=== PATIENT | male | born 1995 | race African-American/Black ===

== ENCOUNTER 2017-09-17 16:10 | Emergency (ER) | payer SELFPAY ==
[~2017-09-17] VITALS: Ht 185.4 cm; Wt 86.0 kg
[~2017-09-17 16:10] MED LIST: TRAM50 PO
[2017-09-17 16:11] VITALS: BP 132/67; PULSE 93; RESP 18; TEMP 98.2; O2SAT 95
== END 2017-09-17 16:35 | disposition left against medical advice (07) ==
LOC: NED 16:10
DX: Z53.21 Procedure and treatment not carried out due to patient leaving prior to being seen by health care provider (principal)
CPT/HCPCS: 99281